=== PATIENT | male | born 1955 | race Caucasian/White ===

== ENCOUNTER 2016-10-15 21:35 | Emergency (ER) | payer OTHER ==
[~2016-10-15] VITALS: Ht 177.8 cm; Wt 113.4 kg
[2016-10-15 22:20] VITALS: BP 57/37
[2016-10-15 22:36] LABS: BASOPHIL % 0.4 % (0-2); PLATELET COUNT 182 x10^3mcL (130-400)
[2016-10-15 22:39] LABS: RED CELL DISTRIBUTION WIDTH 16.4 % (11.5-14.5)
[2016-10-15 22:51] LABS: CALCIUM 8.1 mg/dL (8.5-10.1); CARBON DIOXIDE 14.1 mmol/L (21-32); CREATININE SERUM 1.6 mg/dL (0.7-1.3); POTASSIUM SERUM 4.7 mmol/L (3.5-5.1)
[2016-10-15 22:57] LABS: BILIRUBIN TOTAL 0.17 mg/dL (0.20-1.00)
[2016-10-15 22:58] LABS: ALBUMIN 1.6 g/dL (3.4-5.0); TOTAL PROTEIN, SERUM 4.8 g/dL (6.4-8.2)
[2016-10-15 23:16] LABS: CK-MB 0.7 ng/mL (0-3.6)
== END 2016-10-15 21:41 | disposition expired ==
LOC: ED 21:35
PROVIDERS: Emergency Medicine
DX: I46.9 Cardiac arrest, cause unspecified (principal); R04.2 Hemoptysis; Z85.528 Personal history of other malignant neoplasm of kidney; Z90.5 Acquired absence of kidney
CPT/HCPCS: 83880; J3490; Q0092